=== PATIENT | female | born 1990 | race American Indian/Alaskan Native ===

== ENCOUNTER 2022-03-25 14:47 | Emergency (ER) | payer OTHER ==
[2022-03-25] MEDS ORDERED: HYDROcodone/ACETAMINOPHEN 10-325MG TAB PO ONE (20:20)
[2022-03-25] MEDS ORDERED: ONDANSETRON 4 MG ODT TAB PO ONE (20:21)
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
--- NOTE | 2022-03-25 21:11 | XRay Report ---
. LEFT HAND 2 VIEW(S) INDICATION / CLINICAL INFORMATION: left hand pain COMPARISON: None available. FINDINGS: BONES / JOINT(S): No acute fracture or subluxation. No significant arthritis. SOFT TISSUES: No significant abnormality. ADDITIONAL FINDINGS: None. IMPRESSION: 1. No acute findings. Signer Name: Jose L Fallon MD Signed: 03/25/2022 9:07 PM Workstation Name: [id number]
[2022-03-25 21:33] VITALS: BP 139/71
== END 2022-03-25 21:30 | disposition home or self-care (01) ==
LOC: ED 14:47
DX: M79.642 Pain in left hand (principal); M79.662 Pain in left lower leg; V89.2XXA Person injured in unspecified motor-vehicle accident, traffic, initial encounter; Y93.89 Activity, other specified; Y92.89 Other specified places as the place of occurrence of the external cause; Y99.8 Other external cause status
CPT/HCPCS: 99283; J3490; Q0162